=== PATIENT | female | born 1975 | race Hispanic/Latino ===

== ENCOUNTER 2018-01-07 22:27 | Emergency (ER) | payer SELFPAY ==
[2018-01-08] MEDS ORDERED: HYDROcodone/Acetaminophen 10/325 mg Tablet ONE
== END 2018-01-08 00:05 | disposition home or self-care (01) ==
LOC: ERS 22:27
DX: M62.830 Muscle spasm of back (principal)
CPT/HCPCS: 99283

== ENCOUNTER 2018-10-08 09:46 | Emergency (ER) | payer SELFPAY ==
[2018-10-08 10:33] LABS: Bilirubin Negative (Negative); Blood, Urine Negative (Negative); Clarity CLOUDY (Clear); Glucose, Urine (Dipstick) Negative (Negative); Leukocyte Negative (Negative); Nitrite Negative (Negative); Protein, Urine (Dipstick) 30 mg/dL (Neg-Trace); Specific Gravity, Urine 1.015 (1.002-1.036); Urobilinogen 0.2 mg/dL (0.2-1.0)
[2018-10-08 10:36] LABS: Bacteria/HPF 1+ HPF (None Seen); Hyaline Casts/LPF 0-3 HYALINE CAST LPF (0-3 Hyaline); Pathc Cast-AUWi Flag 0.72 (0-2.49)
[2018-10-08 10:41] LABS: Pregnancy Test - Urine (BHCG) Negative (Negative); Pregu Control Background? CLEAR/WHITE (CLR/WHITE); Pregu Control Bar Appear? YES (CONTROL BAR); RBC/HPF 0-3 HPF (0-3); Specific Gravity 1.015 (1.002-1.036)
[2018-10-08] MEDS ORDERED: Morphine 4 MG/ML VIAL ONE (10:46)
[2018-10-08 10:47] LABS: #Eosinphils 0.3 thou/uL (0.0-0.7); #Lymphocytes 2.6 thou/uL (1.20-3.40); #Monocytes 0.6 thou/uL (0.11-0.59); #Neutrophils 5.2 thou/uL (1.40-6.50); %Basophils 0.2 % (0.0-1.0); %Eosinophils 3.1 % (0.0-10.0); %Lymphocytes 29.5 % (21.0-51.0); %Neutrophils 60.1 % (42.0-75.0); Hemoglobin 13.8 g/dL (12.0-16.0); Mean Corpuscular HGB CONC 33.1 g/dL (32.0-36.0); Mean Corpuscular Hemoglobin 29.6 pg (27.0-31.0); Mean Corpuscular Volume 89.6 fL (78.0-98.0); Mean Platelet Volume 9.1 fL (7.4-10.4); Platelet Count 256 thou/uL (130-400); RBC Distribution Width 13.2 % (11.5-14.5); Red Blood Cell (RBC) Count 4.66 mill/uL (4.20-5.40); White Blood Cell (WBC) Count 8.7 thou/uL (4.8-10.8)
[2018-10-08] MEDS ORDERED: Ondansetron PF 4 MG/2 ML Vial ONE (10:56)
[2018-10-08 11:07] LABS: ALT (SGPT) 11 U/L (8-55); AST (SGOT) 13 U/L (5-34); Alkaline Phosphatase 80 U/L (40-150); Anion Gap 12 mmol/L (10-20); BUN (Urea Nitrogen) 10 mg/dL (7.0-18.7); Bilirubin, Total 0.6 mg/dL (0.2-1.2); Calc. Creatinine Clearance 0 mL/min (70-130); Calcium 9.3 mg/dL (7.8-10.44); Carbon Dioxide 25 mmol/L (22-29); Chloride 104 mmol/L (98-107); Estimated GFR-MDRD 86; Globulin 3.8 g/dL (2.4-3.5); Glucose 118 mg/dL (70-105); Lipase 13 U/L (8-78); Potassium 4.3 mmol/L (3.5-5.1); Protein, Total 7.8 g/dL (6.0-8.3); Sodium 137 mmol/L (136-145)
--- NOTE | 2018-10-08 11:49 | CT ---
CT ABDOMEN AND PELVIS WITH IV CONTRAST: Date: 10/08/18 HISTORY: Diffuse lower abdominal pain. FINDINGS: There are mild dependent changes in the lung bases. The liver, spleen, pancreas, adrenal glands, and left kidney are normal. Tiny scarring is seen in the right kidney. No calcified gallstones are seen. No free air, free fluid, or lymphadenopathy seen in the abdomen or pelvis. The small bowel loops are not abnormally dilated. There is fat-containing small bilateral inguinal hernia. Uterus and ovaries a re present. There is heterogeneity in the enlarged uterus with calcified mass. A 2.5 cm left ovarian cyst is present. A normal appearing appendix is noted. IMPRESSION: 1. No evidence of acute process. 2. Fibroid uterus. 3. 2.5 cm left ovarian cyst. POS: [facility]
--- NOTE | 2018-10-14 15:19 | EKG ---
Test Reason : Blood Pressure : / mmHG Vent. Rate : 083 BPM Atrial Rate : 083 BPM P-R Int : 156 ms QRS Dur : 084 ms QT Int : 394 ms P-R-T Axes : 051 -25 025 degrees QTc Int : 462 ms Normal sinus rhythm Minimal voltage criteria for LVH, may be normal variant Borderline ECG Confirmed by JOSUE SIMPSON M.D. ([id number]), avid editor GERMAINE LENZ ([id number] on 10/14/2018 3:18:49 PM Referred By: Confirmed By:JOSUE SIMPSON M.D.
== END 2018-10-08 12:43 | disposition home or self-care (01) ==
LOC: ERS 09:46
DX: N83.202 Unspecified ovarian cyst, left side (principal); D25.9 Leiomyoma of uterus, unspecified
CPT/HCPCS: 36415; 74177; 80053; 81003; 81015; 81025; 83690; 85025; 87081; 87086; 87430; 93005; 96361; 96374; 96375; J2270; J2405

== ENCOUNTER 2019-09-22 05:20 | Emergency (ER) | payer SELFPAY | END 2019-09-22 05:50 | disposition home or self-care (01) | LOC: ERS 05:20 | DX: J04.0 Acute laryngitis (principal) | CPT/HCPCS: 99283 ==